=== PATIENT | female | born 1980 | race Caucasian/White ===

== ENCOUNTER 2016-07-30 09:13 | Emergency (ER) | payer MEDICAID ==
[2016-06-01 12:38] VITALS: BMI 28.2
[~2016-07-30 09:13] MED LIST: ATIVAN1 MG PO; DESERYL100 MG PO; IBUPROFEN800 MG PO; PERCOCET 10/3251 TA1 PO; PROZAC20 MG PO; ROBAXIN-750750 MG PO; TOPAMAX100 MG PO; ULTRAM50 MG PO; XANAX1 MG PO
[2016-07-30 09:49] LABS: BASOPHILS 0.5 % (0.0-2.0); EOSINOPHILS 2.2 % (0-7); HEMOGLOBIN 12.4 g/dL (12-16); IMMATURE GRANULOCYTES 0.1 % (0-5); LYMPHOCYTES 19.8 % (15-50); MCH 32.1 pg (26.0-34.0); MCHC 33.5 g/dL (31.0-37.0); MCV 95.9 fL (80.0-100.0); MEAN PLATELET VOLUME 10.9 fL (7.4-10.4); MONOCYTES 5.1 % (2-11); NEUTROPHILS 72.3 % (40-80); RBC 3.86 10x6/uL (4.00-5.40); RDW 11.9 % (11.5-14.5); WBC 7.7 10x3/uL (4.8-10.8)
[2016-07-30 09:55] LABS: PLATELET COUNT 220 10x3/uL (130-400)
[2016-07-30 10:04] LABS: ALBUMIN 4.2 g/dL (3.4-5.0); ALKALINE PHOSPHATASE 35 U/L (46-116); ALT (SGPT) 25 U/L (10-68); AMYLASE - SERUM 33 U/L (25-115); BILIRUBIN - TOTAL 0.19 mg/dL (0.2-1.3); CALC OSMOLALITY 284 mosm/kg (275-300); CALCIUM 9.2 mg/dL (8.5-10.1); CARBON DIOXIDE 24.9 mmol/L (21.0-32.0); CHLORIDE - SERUM 106 mmol/L (98-107); CREATININE - SERUM 0.9 mg/dL (0.6-1.3); GLUCOSE 99 mg/dL (74-106); LIPASE 66 U/L (73-393); POTASSIUM - SERUM 4.3 mmol/L (3.5-5.1); PROTEIN - SERUM 7.4 g/dL (6.4-8.2); SODIUM 143 mmol/L (136-145); UREA NITROGEN 13 mg/dL (7-18); eGFR NON AFRICAN AMERICAN 75 mL/min (90-120)
[2016-07-30 10:37] LABS: APPEARANCE CLEAR (CLEAR); BACTERIA FEW /hpf (NONE SEEN); BILIRUBIN NEGATIVE (NEGATIVE); COLOR STRAW (YELLOW); EPITHELIAL CELLS 0-5 /hpf (0-5); GLUCOSE NEGATIVE (NEGATIVE); KETONE NEGATIVE (NEGATIVE); LEUKOCYTE ESTERASE TRACE (NEGATIVE); NITRITE NEGATIVE (NEGATIVE); PROTEIN NEGATIVE (NEGATIVE); UROBILINOGEN NORMAL (NORMAL); WHITE CELLS - URINE RARE /hpf (0-5)
[2016-07-30 10:38] LABS: HCG URINE NEGATIVE (NEGATIVE)
== END 2016-07-30 12:03 | disposition home or self-care (01) ==
LOC: D.ER 09:13
PROVIDERS: Emergency Medicine
DX: R10.9 Unspecified abdominal pain (principal)

== ENCOUNTER 2016-12-25 10:46 | Emergency (ER) | payer SELFPAY ==
[2016-06-01 12:38] VITALS: BMI 28.2
[2016-12-25 12:24] LABS: BASOPHILS 0.6 % (0-2); EOSINOPHILS 4.1 % (0-7); HEMATOCRIT 35.7 % (36.0-48.0); IMMATURE GRANULOCYTES 0.6 % (0-5); LYMPHOCYTES 24.3 % (15-50); MCH 31.4 pg (26.0-34.0); MCHC 33.6 g/dL (31.0-37.0); MCV 93.5 fL (80.0-100.0); MEAN PLATELET VOLUME 11.6 fL (7.4-10.4); MONOCYTES 8.8 % (2-11); NEUTROPHILS 61.6 % (40-80); PLATELET COUNT 211 10x3/uL (130-400); RBC 3.82 10x6/uL (4.00-5.40); RDW 12.8 % (11.5-14.5); WBC 6.4 10x3/uL (4.8-10.8)
[2016-12-25 12:39] LABS: HCG SERUM POSITIVE (NEGATIVE)
[2016-12-25 12:55] LABS: APPEARANCE CLEAR (CLEAR); BILIRUBIN NEGATIVE (NEGATIVE); COLOR STRAW (YELLOW); GLUCOSE NEGATIVE (NEGATIVE); KETONE NEGATIVE (NEGATIVE); LEUKOCYTE ESTERASE NEGATIVE (NEGATIVE); NITRITE NEGATIVE (NEGATIVE); PROTEIN NEGATIVE (NEGATIVE); SPECIFIC GRAVITY 1.005 (1.005-1.020); UROBILINOGEN NORMAL (NORMAL)
[2016-12-25 12:57] LABS: ALBUMIN 3.4 g/dL (3.4-5.0); ALKALINE PHOSPHATASE 33 U/L (46-116); ALT (SGPT) 25 U/L (10-68); AMYLASE - SERUM 43 U/L (25-115); CALC OSMOLALITY 269 mosm/kg (275-300); CALCIUM 9.5 mg/dL (8.5-10.1); CARBON DIOXIDE 24.6 mmol/L (21.0-32.0); CHLORIDE - SERUM 102 mmol/L (98-107); CREATININE - SERUM 0.6 mg/dL (0.6-1.3); GLUCOSE 86 mg/dL (74-106); LIPASE 88 U/L (73-393); PROTEIN - SERUM 7.5 g/dL (6.4-8.2); SODIUM 136 mmol/L (136-145); UREA NITROGEN 11 mg/dL (7-18); eGFR NON AFRICAN AMERICAN > 90 mL/min (90-120)
== END 2016-12-25 17:16 | disposition home or self-care (01) ==
LOC: D.ER 10:46
PROVIDERS: Nurse Practitioner Family
DX: O29.6 Failed or difficult intubation for anesthesia during pregnancy (principal); E86.0 Dehydration

== ENCOUNTER → 2017-03-29 10:55 | Outpatient (CLI) | payer SELFPAY ==
[2016-06-01 12:38] VITALS: BMI 28.2
[2017-03-29 13:37] LABS: BASOPHILS 0.3 % (0-2); EOSINOPHILS 0.9 % (0-7); HEMATOCRIT 34.4 % (36.0-48.0); HEMOGLOBIN 11.5 g/dL (12-16); IMMATURE GRANULOCYTES 0.3 % (0-5); LYMPHOCYTES 17.5 % (15-50); MCH 32.1 pg (26.0-34.0); MCHC 33.4 g/dL (31.0-37.0); MCV 96.1 fL (80.0-100.0); MEAN PLATELET VOLUME 11.3 fL (7.4-10.4); PLATELET COUNT 212 10x3/uL (130-400); RBC 3.58 10x6/uL (4.00-5.40); RDW 12.7 % (11.5-14.5)
[2017-03-29 13:50] LABS: APTT 21.7 SECONDS (22.8-39.4); INR 0.96 (0.85-1.17); PROTIME 12.7 SECONDS (11.6-15.0)
[2017-03-29 13:52] LABS: APPEARANCE HAZY (CLEAR); BILIRUBIN NEGATIVE (NEGATIVE); COLOR YELLOW (YELLOW); GLUCOSE NEGATIVE (NEGATIVE); KETONE MODERATE mg/dL (NEGATIVE); LEUKOCYTE ESTERASE 1+ (NEGATIVE); NITRITE NEGATIVE (NEGATIVE); PROTEIN NEGATIVE (NEGATIVE); UROBILINOGEN NORMAL (NORMAL)
[2017-03-29 13:55] LABS: WHITE CELLS - URINE 0-5 /hpf (0-5)
[2017-03-29 13:56] LABS: BACTERIA MODERATE /hpf (NONE SEEN); MUCUS <1+ /lpf (NONE SEEN); RED CELLS - URINE RARE /hpf (0-5)
[2017-03-29 14:11] LABS: UDS - AMPHET NEGATIVE QUAL (NEGATIVE); UDS - BARB NEGATIVE QUAL (NEGATIVE); UDS - BENZO NEGATIVE QUAL (NEGATIVE); UDS - COCAINE NEGATIVE QUAL (NEGATIVE); UDS - METH NEGATIVE QUAL (NEGATIVE); UDS - OPIATE NEGATIVE QUAL (NEGATIVE); UDS - PCP NEGATIVE QUAL (NEGATIVE); UDS - THC NEGATIVE QUAL (NEGATIVE)
== END | disposition home or self-care (01) ==
LOC: D.LDO 10:55
PROVIDERS: Obstetrics & Gynecology
DX: O26.852 Spotting complicating pregnancy, second trimester (principal); Z3A.25 25 weeks gestation of pregnancy

== ENCOUNTER 2017-05-22 18:38 | Outpatient (CLI) | payer MEDICAID ==
[2016-06-01 12:38] VITALS: BMI 28.2
[2017-05-22 19:08] LABS: APPEARANCE CLOUDY (CLEAR); BILIRUBIN NEGATIVE (NEGATIVE); COLOR YELLOW (YELLOW); GLUCOSE NEGATIVE (NEGATIVE); KETONE NEGATIVE (NEGATIVE); NITRITE NEGATIVE (NEGATIVE); PROTEIN NEGATIVE (NEGATIVE); UROBILINOGEN NORMAL (NORMAL)
[2017-05-22 19:10] LABS: BACTERIA MODERATE /hpf (NONE SEEN); RED CELLS - URINE OCC /hpf (0-5)
== END 2017-05-22 20:27 | disposition home or self-care (01) ==
LOC: D.LDO 18:38
PROVIDERS: Obstetrics & Gynecology
DX: O26.893 Other specified pregnancy related conditions, third trimester (principal); Z3A.33 33 weeks gestation of pregnancy; M54.5 Low back pain; R10.30 Lower abdominal pain, unspecified

== ENCOUNTER 2017-07-05 05:15 | Inpatient (IN) | payer MEDICAID ==
[~2017-07-05] VITALS: Ht 154.9 cm; Wt 93.4 kg
[2017-07-05] MEDS ORDERED: PRENATAL COMPLE1 TAB PO (05:46)
[2017-07-05] MEDS ORDERED: FOLATE0.4 MG (05:47)
[2017-07-05] MEDS ORDERED: ACETAMINOPHEN325 MG PO (05:48)
[2017-07-05 05:50] VITALS: BP 129/70; BMI 39.0
[2017-07-05 06:55] LABS: HEMATOCRIT 35.6 % (36.0-48.0); HEMOGLOBIN 11.8 g/dL (12-16); MCH 31.5 pg (26.0-34.0); MCHC 33.1 g/dL (31.0-37.0); MCV 94.9 fL (80.0-100.0); RBC 3.75 10x6/uL (4.00-5.40); RDW 13.7 % (11.5-14.5); WBC 7.5 10x3/uL (4.8-10.8)
[2017-07-05 19:24] VITALS: BP 133/62
--- NOTE | 2017-07-05 19:25 | NUR ---
RN TO PT BS FOR HERNAN. PT SITTING IN BED, CHANGING DIAPER, PT IN NO ACUTE DISTRESS. PT IS A 36YO G3 NOW P3 WITH OF VIABLE MALE INFANT TODAY @ 1453. @ 39.4 WKS GESTATION. PT WITH FIRST DEGREE LACERATION AND REPAIR. AAOX3. HR REGULAR. LUNGS CTAB. ABDOMEN SOFT AND NON TENDER. BS ACTIVE TIMES 4. FUNDUS FIRM AND ML @ U/-1. LOCHIA RUBRA SCANT. PERINIUM APPEARS TO BE INTACT. MINIMAL SWELLING NOTED. KING PAD AND PANTIES IN PLACE. PT STATES SHE HAS PASSED GAS SINCE . STATES SHE HAS NOT HAD A BM SINCE . PT DENIES DIFFICULTY VOIDING AND IS TOLERATING REGULAR DIET. 1+ EDEMA NOTED TO LOWER EXTREMITIES BILATERALLY. NO EDEMA NOTED TO UPPER EXTREMITIES BILATERALLY. 18G SL IN PLACE TO RIGHT FA. FLUSHED AT THIS TIME WITH 5 CC NS WITHOUT DIFFICULTY. NO REDNESS OR EDEMA NOTED TO SITE. PT RATES PAIN AT 4/10. PT PREVIOUSLY MEDICATION WITH NORCO 5. FRESH SPRITE AND WATER PROVIDED TO PT. PT DENIES ANY FURTHER NEEDS. BED IN LOW POSITION, SIDE RAILS UP TIMES 2, CALL LIGHT AND PHONE IN REACH. INFANT REMAINS AT PT BS FOR COUPLET CARE. WILL CONT TO MONITOR PT STATUS.
--- NOTE | 2017-07-05 20:58 | NUR ---
RN TO PT BS FOR ROUNDS. PT RESTING IN BED IN HIGH FOWLERS POSITION, HOLDING , PT IN NO ACUTE DISTRESS. PT C/O PAIN, RATES 7/10, REQUESTS MEDICAITON 1 TAB IBUPROFEN PROVIDED TO PT AT THIS TIME. PT DENIES ANY FURTHER NEEDS. BED IN LOW POSITION, SIDE RAILS UP TIMES 2, CALL LIGHT AND PHONE IN REACH. SO AT PT BS FOR SUPPORT AND ASSISTANCE. INFANT REMAINS AT PT BS FOR COUPLET CARE. WILL CONT TO MONITOR PT STATUS.
--- NOTE | 2017-07-05 21:55 | NUR ---
RN TO PT BS TO REASSESS PAIN LEVEL. PT STATES PAIN IS NOW 7/10. STATES THE IBUPROFEN DID NOT HELP RELIEVE PAIN. INFORMED PT WOULD PROVIDE WITH NORCO 5 @ 2230. PT VERBALIZED UNDERSTANDING. PT DENIES ANY FURTHER NEEDS AT THIS TIME. BED IN LOW POSITION, SIDE RAILS UP TIMES 2, CALL LIGHT AND PHONE IN REACH. SO REMAINS AT PT BS FOR SUPPORT AND ASSISTANCE. REMAINS AT PT BS FOR COUPLET CARE. WILL CONT TO MONITOR PT STATUS.
--- NOTE | 2017-07-05 22:30 | NUR ---
RN TO PT BS. PT C/O PAIN, RATES 10/, REQUESTS MEDICATION. 1 TAB NORCO 5 PROVIDED TO PT AT THIS TIME. PT DENIES ANY FURTHER NEEDS. BED IN LOW POSITION, SIDE RAILS UP TIMES 2, CALL LIGHT AND PHONE IN REACH. SO REMAINS AT PT BS FOR SUPPORT AND ASSISTANCE. REMAINS AT PT BS FOR COUPLET CARE. WILL CONT TO MONITOR PT STATUS.
--- NOTE | 2017-07-05 23:34 | NUR ---
RN TO PT BS TO RE ASSESS PT PAIN LEVEL. PT RESTING IN BED IN HIGH FOWLERS POSITION, HOLDING . PT IN NO ACUTE DISTRESS. PT RATES PAIN AT 6/10 AT THIS TIME. STATES THE MEDICATION HELPED HER PAIN. PT DENIES ANY FURTHER NEEDS. BED IN LOW POSITION, SIDE RAILS UP TIMES 2, CALL LIGHT AND PHONE IN REACH. SO REMAINS AT PT BS FOR SUPPORT AND ASSISTANCE. INFANT REMAINS AT PT BS FOR COUPLET CARE. WILL CONT TO MONITOR PT STATUS.
--- NOTE | 2017-07-06 00:45 | NUR ---
RN TO PT BS FOR ROUNDS. PT RESTING IN BED IN RIGHT LATERAL POSITION, IN NO ACUTE DISTRESS. PT C/O PERINIAL DISCOMFORT. DERMOPLAST PROVIDED TO PT AT THIS TIME WITH INSTRUCTIONS FOR USE. PT DENIES ANY FURTHER NEEDS. BED IN LOW POSITION, SIDE RAILS UP TIMES 2, CALL LIGHT AND PHONE IN REACH. SO REMAINS AT PT BS FOR SUPPORT AND ASSISTANCE. WILL CONT TO MONITOR PT STATUS.
--- NOTE | 2017-07-06 02:33 | NUR ---
RN CALLED TO PT BS WITH C/O PAIN, RATES 12/26. REQUESTS MEDICATION. 1 TAB IBUPROFEN AND 1 TAB NORCO 5 PROVIDED AT THIS TIME. PT ASKED IF SHE WAS USING DERMOPLAST SPRAY. PT STATES SHE JUST USED IT AND IT DID IMPROVE PAIN LEVEL. FRESH WATER MUG PROVIDED AT THIS TIME. PT DENIES ANY FURTHER NEEDS. BED IN LOW POSITION, SIDE RAILS UP TIMES 2, CALL LIGHT AND PHONE IN REACH. SO REMAINS AT PT BS FOR SUPPORT AND ASSISTANCE. WILL CONT TO MONITOR PT STATUS.
--- NOTE | 2017-07-06 03:27 | NUR ---
RN TO PT BS FOR ROUNDS. PT RESTING IN BED IN RIGHT LATERAL POSITION, WITH EYES CLOSED, IN NO ACUTE DISTRESS. PT AWAKENS WHEN RN ENTERS ROOM. PT STATES HER PAIN HAS IMPROVED TO 4/10. PT DENIES ANY NEEDS AT THIS TIME. BED IN LOW POSITION, SIDE RAILS UP TIMES 2, CALL LIGHT AND PHONE IN REACH. SO REMAINS AT PT BS FOR SUPPORT AND ASSISTANCE. WILL CONT TO MONITOR PT STATUS.
--- NOTE | 2017-07-06 05:26 | NUR ---
RN TO PT BS FOR ROUNDS. PT RESTING IN BED IN SEMI-FOWLERS POSITION, PLAYING ON PHONE. PT IN NO ACUTE DISTRESS. PT RATES PAIN AT 6/10 AT THIS TIME. PAIN MEDICATION SCHEDULE REVIEWED WITH PT. QUESTIONS ANSWERED. PT ASKED TO CONSULT DR. KEITA THIS AM ABOUT CONSTANT PAIN. PT DENIES ANY NEEDS. BED IN LOW POSITION, SIDE RAILS UP TIMES 2, CALL LIGHT AND PHONE IN REACH. SO REMAINS AT PT BS FOR SUPPORT AND ASSISTANCE. WILL CONT TO MONITOR PT STATUS.
[2017-07-06 06:16] LABS: BASOPHILS 0.1 % (0-2); EOSINOPHILS 0.7 % (0-7); HEMATOCRIT 31.8 % (36.0-48.0); HEMOGLOBIN 10.6 g/dL (12-16); IMMATURE GRANULOCYTES 0.3 % (0-5); LYMPHOCYTES 13.2 % (15-50); MCH 31.8 pg (26.0-34.0); MCHC 33.3 g/dL (31.0-37.0); MCV 95.5 fL (80.0-100.0); MEAN PLATELET VOLUME 12.2 fL (7.4-10.4); MONOCYTES 10.1 % (2-11); NEUTROPHILS 75.6 % (40-80); PLATELET COUNT 167 10x3/uL (130-400); RBC 3.33 10x6/uL (4.00-5.40)
[2017-07-06 06:24] LABS: WBC 10.9 10x3/uL (4.8-10.8)
--- NOTE | 2017-07-06 06:39 | NUR ---
CALLED TO PT BS WITH C/O PAIN, RATES 12/26, REQUESTS MEDICATION. 1 TAB NORCO 5 PROVIDED TO PT AT THIS TIME WITH FRESH MUG OF WATER. PT DENIES ANY FURTHER NEEDS. BED IN LOW POSITION, SIDE RAILS UP TIMES 2, CALL LIGHT AND PHONE IN REACH. SO REMAINS AT PT BS FOR SUPPORT AND ASSISTANCE. REMAINS AT PT BS FOR COUPLET CARE. WILL CONT TO MONITOR PT STATUS AND GIVE REPORT TO AM SHIFT.
[2017-07-06 07:20] VITALS: BP 136/72
--- NOTE | 2017-07-06 07:20 | NUR ---
RECEIVED PT SITTING UP IN BED. AWAKE. AAO X 4. VSS. HRRR WITHOUT AUDIBLE MURMUR. BBS CLEAR. BS X 4. ABDOMEN SOFT/NON-DISTENDED. FUNDUS FIRM AT U/2. RUBRA LOCHIA SMALL AMT. NO CLOTS PER PT STATES. NEG HOMANS' SIGN. PPP. MILD NON-PITTING EDEMA NOTED TO BLE. SL TO RIGHT FOREARM CLEAR. PT REQUESTS AND RECEIVES ICE CHIPS. SR UP X2. CALL LIGHT IN REACH.
[2017-07-06 07:25] LABS: RAPID PLASMA REAGIN Non Reactive (Non Reactive)
--- NOTE | 2017-07-06 09:30 | NUR ---
PT SITTING UP IN BED. CARING FOR INFANT. DENIES C/O OR NEEDS.
--- NOTE | 2017-07-06 10:30 | NUR ---
KPAD TO PT BACK. PT INSTRUCTED ON EQUIPMENT. VERBALIZES UNDERSTANDING.
--- NOTE | 2017-07-06 10:45 | NUR ---
PT UP TO SHOWER. TOWELS PROVIDED.
--- NOTE | 2017-07-06 11:00 | NUR ---
DR KEITA HERE. VISITS WITH PT.
--- NOTE | 2017-07-06 11:24 | NUR ---
PT C/O BACK PAIN OF "8" ON 0-10 PAIN SCALE. NORCO 5/325 GIVEN PO ORDERED. PT INSTRUCTED ON MED. VERBALIZES UNDERSTANDING.
[2017-07-06] MEDS ORDERED: IBUPROFEN600 MG PO (11:58)
[2017-07-06] MEDS ORDERED: HYDROCODON-ACE1 EAC7 PO (11:58)
--- NOTE | 2017-07-06 12:20 | NUR ---
PT SITTING UP IN BED. VISITS WITH FAMILY, TALKING AND LAUGHING. VOICES NO C/O OR NEEDS.
[2017-07-06 12:50] VITALS: Ht 154.9 cm; Wt 93.4 kg
--- NOTE | 2017-07-06 13:30 | NUR ---
PT SITTING UP IN BED. VISITS WITH FAMILY. FEEDING AT THIS TIME. DENIES C/O OR NEEDS.
--- NOTE | 2017-07-06 14:20 | NUR ---
TDAP 0.5 ML GIVEN IM TO LEFT DELTOID. INFLUENZA VACCINE 0.5 ML GIVEN IM TO RIGHT DELTOID. BANDAID TO SITES. PT MARISOL WELL.
--- NOTE | 2017-07-06 14:35 | NUR ---
DISCHARGE INSTRUCTIONS GIVEN TO PT. PT VERBALIZES UNDERSTANDING OF ALL INSTRUCTIONS. COPIES GIVEN TO PT. PT GIVEN RX FOR NORCO 5/325 AND MOTRIN. PT AWAITS 'S DISCHARGE.
--- NOTE | 2017-07-06 15:30 | NUR ---
PT READY FOR DISCHARGE. DISCHARGED WITH VIA WHEELCHAIR PER Bryan MERCEDES RN TO PRIVATE VEHICLE IN STABLE CONDITION.
--- NOTE | 2017-08-18 14:52 | DS ---
PATIENT:OSWALDO CHONG :80 MEDICAL RECORD: [id number] DISCHARGE SUMMARY ADMISSION DATE: 07/05/17 DISCHARGE DATE: 07/06/17 HISTORY OF PRESENT ILLNESS: The patient was admitted on 07/05/2017. A 36-year-old G3, P2 at 39 weeks and 3/7 days admitted for induction of labor per patient wishes. The patient was noted to be A positive, group B strep negative, and rubella immune. PAST MEDICAL HISTORY: The patient had a past medical history significant for migraines and depression and acid reflux. PAST SURGICAL HISTORY: Significant for knee surgery times 3. ALLERGIES: The patient reported no allergies. MEDICATIONS: The patient reported taking vitamins, folic acid, and Tylenol. FAMILY HISTORY: Significant for cardiovascular disease and diabetes in the parents, a sibling with a neurological disorder. SOCIAL HISTORY: The patient reports being a former tobacco user, but otherwise social history was negative. PHYSICAL EXAMINATION: GENERAL: On initial assessment, the patient was afebrile and normotensive. LUNGS: Clear to auscultation. CARDIOVASCULAR: Regular rate and rhythm. PELVIC: Uterus was appropriately sized and nontender. EXTREMITIES: Lower extremities were free of Homans sign, erythema, or swelling. Admit hemoglobin was found to be 11.8. ASSESSMENT AND PLAN: 1. Term intrauterine at 39 weeks. 2. Induction of labor per patient wishes. 3. History of depression. 4. Gastroesophageal reflux disease. 5. Migraines. PLAN: Pitocin augmentation of labor with AROM when appropriate. wellbeing at admission reassuring with category 1 tracing. AROM was performed with clear fluid. The patient progressed to the second stage of labor and had a vaginal delivery with a second-degree perineal laceration. Delivery note is as on the chart. The patient did well overnight on day #0, tolerating p.o. pain meds, general diet, and voiding freely and ambulating well. On the morning of day #1, the patient continued to do well. Vital signs were stable. The patient was afebrile. Uterus was infraumbilical and nontender with minimal lochia. The patient was discharged home on day #1 with instructions to follow up in 4 weeks. TRANSINT:[id number] Voice Confirmation ID: [id number] DOCUMENT ID: [id number] DISCHARGE SUMMARY REPORT [id number] OSWALDO CHONG MICHAEL W MD at 1452 CC: [id number] DICTATION DATE: 08/12/17 0808 [employer]: 08/12/17 1207 DIS IN 07/06/17 [id number] [place] [address]
== END 2017-07-06 15:30 | disposition home or self-care (01) | DRG 775 ==
LOC: D.LD 05:15
PROVIDERS: ADMIT Obstetrics & Gynecology
PROC: 10E0XZZ Delivery of Products of Conception, External Approach (ICD-10-PCS; principal; 2017-07-05)
PROC: 0HQ9XZZ Repair Perineum Skin, External Approach (ICD-10-PCS; 2017-07-05)
DX: O99.214 Obesity complicating childbirth (principal); Z3A.39 39 weeks gestation of pregnancy; Z37.0 Single live birth; Z87.891 Personal history of nicotine dependence; O70.0 First degree perineal laceration during delivery